=== PATIENT | female | born 1990 | race Caucasian/White ===

== ENCOUNTER 2018-03-04 10:26 | Emergency (ER) | payer OTHER ==
[2018-03-04 11:58] LABS: URINE BLOOD (Dip) POC 1+ (NEGATIVE); URINE GLUCOSE (Dip) POC Negative (NEGATIVE); URINE KETONES (Dip) POC Trace (NEGATIVE); URINE LEUKOCYTE EST (Dip) POC 1+ (NEGATIVE); URINE NITRITE (Dip) POC Negative (NEGATIVE); URINE TOTAL PROTEIN POC 1+ (NEGATIVE)
[2018-03-04] MEDS: ONDANSETRON (ODT) 4 MG TAB ODT (11:58)
[2018-03-04] MEDS: HYDROCODONE/APAP (5/325) TAB PO (11:59)
== END 2018-03-04 14:01 | disposition home or self-care (01) ==
LOC: FTE 10:26
DX: N39.0 Urinary tract infection, site not specified (principal)
CPT/HCPCS: 71045; 71100; 72072; 72100; 72170; 73550; 81003; 81025; 99284-25

== ENCOUNTER 2018-04-26 13:50 | Emergency (ER) | payer OTHER | END 2018-04-26 16:04 | disposition home or self-care (01) | LOC: FTE 13:50 | DX: J34.89 Other specified disorders of nose and nasal sinuses (principal) | CPT/HCPCS: 81025; 99283 ==

== ENCOUNTER 2018-10-18 02:45 | Emergency (ER) | payer OTHER ==
[2018-10-18] MEDS: IBUPROFEN 600 MG TAB PO (04:38)
[2018-10-18] MEDS: GUAIFENESIN 20 MG/ML 5ML CUP PO (04:38)
[2018-10-18] MEDS: predniSONE 20 MG TAB PO (04:38)
== END 2018-10-18 04:49 | disposition home or self-care (01) ==
LOC: FTE 02:45
DX: J20.9 Acute bronchitis, unspecified (principal); J04.0 Acute laryngitis
CPT/HCPCS: 99283; J7512